=== PATIENT | female | born 1950 | race Caucasian/White ===

== ENCOUNTER 2025-02-07 05:36 | Observation (INO) | payer MEDICARE ==
[2025-02-06 09:41] LABS: BASOPHILS # (AUTO) 0.1 (0.0-0.1); BASOPHILS % 0.9 % (0.0-1.0); EOSINOPHILS # (AUTO) 0.1 (0.0-0.4); EOSINOPHILS % 1.7 % (0.0-6.0); HEMATOCRIT 35.7 % (34.2-44.1); HEMOGLOBIN 11.3 g/dL (12.0-16.0); LYMPHOCYTES # (AUTO) 1.5 (1.0-3.2); LYMPHOCYTES % 25.1 % (18.0-39.1); MEAN CORPUSCULAR HEMOGLOBIN 26.6 pg (28-32); MEAN CORPUSCULAR HGB CONC 31.7 g/dL (31-35); MONOCYTES # (AUTO) 0.6 (0.2-0.8); MONOCYTES % 9.5 % (4.4-11.3); NEUTROPHILS # (AUTO) 3.6 (2.1-6.9); NEUTROPHILS % 62.6 % (38.7-80.0); PLATELET COUNT 199 x10e3/uL (140-360); RED BLOOD COUNT 4.25 x10e6/uL (3.6-5.1); RED CELL DISTRIBUTION WIDTH 15.8 % (11.7-14.4); WHITE BLOOD COUNT 5.78 x10e3/uL (4.8-10.8)
[2025-02-06 10:16] LABS: ANION GAP 14.1 mmol/L (8-16); CALCIUM 9.4 mg/dL (8.4-10.2); CREATININE, SERUM 1.35 mg/dL (0.57-1.11); POTASSIUM 4.1 mmol/L (3.5-5.1)
[~2025-02-07] VITALS: Ht 157.5 cm; Wt 91.2 kg
[~2025-02-07 05:36] MED LIST: ASPIRIN EC81 MG PO; ATORVASTATIN CA10 MG PO; GABAPENTIN300 MG PO; HYDRALAZINE HC100 MG PO; HYDROCHLOROTHIA25 MG PO; LEVOTHYROXINE75 MCG PO; MELOXICAM7.5 MG PO; MIRTAZAPINE15 MG PO; MONTELUKAST SOD10 MG PO; OMEPRAZOLE40 MG PO; POTASSIUM CHLO20 ME1 PO; SERTRALINE HCL100 MG PO; TIZANIDINE HCL4 MG PO; VERAPAMIL ER120 MG PO; ZEBETA10 MG PO
[2025-02-07] MEDS: CELECOXIB 200 MG CAP ONE ×2 (06:49→16:53)
[2025-02-07] MEDS: GABAPENTIN 300 MG CAP ONE (06:49)
[2025-02-07] MEDS: CEFAZOLIN SODIUM 2 GM ONE (06:50)
[2025-02-07] MEDS: LACTATED RINGER'S 1,000 ML ONE (06:51)
[2025-02-07] MEDS: DEXAMETHASONE SOD PHOS 10 MG/1 ML VIAL ONE (06:51)
[2025-02-07] MEDS: DEXAMETHASONE 10MG/ML PF INJ ONE (06:52)
[2025-02-07] MEDS ORDERED: ONDANSETRON HCL INJ 2MG/ML 2ML 2 MG/ML VIAL ONE (07:09)
[2025-02-07] MEDS ORDERED: FENTANYL CITRATE/PF 100MCG/2 ML INJ ONE ×2 (07:09→08:31)
[2025-02-07] MEDS ORDERED: LIDOCAINE HCL 2% LOCAL INJ 5 ML SDV VIAL INJ ONE (07:09)
[2025-02-07] MEDS ORDERED: DEXAMETHASONE SOD PHOS INJ 4 MG/ML SDV ONE (07:09)
[2025-02-07] MEDS ORDERED: PROPOFOL IV EMULSION 10 MG/ML 20 ML VIAL ONE ×2 (07:10→08:19)
[2025-02-07] MEDS ORDERED: SEVOFLURANE INHAL SOLN 250 ML PEN BTL ONE (07:10)
[2025-02-07] MEDS ORDERED: ACETAMINOPHEN 1000 MG/100 ML 100 ML IV ONE (07:10)
[2025-02-07] MEDS: SODIUM CHLORIDE 0.9% 1000ML 1,000 ML IV SCH (09:15)
[2025-02-07] MEDS ORDERED: ONDANSETRON HCL INJ 2MG/ML 2ML 2 MG/ML VIAL IV PRN (09:15)
[2025-02-07] MEDS ORDERED: DIPHENHYDRAMINE HCL INJ 50 MG/ML VIAL IV PRN (09:15)
[2025-02-07] MEDS ORDERED: HYDROCODONE/APAP 5MG-325MG TAB PO PRN (09:15)
[2025-02-07] MEDS ORDERED: DOCUSATE SODIUM 100 MG CAP PO PRN (09:15)
[2025-02-07] MEDS: ONDANSETRON HCL INJ 2MG/ML 2ML 2 MG/ML VIAL IV ONE (09:53)
[2025-02-07] MEDS ORDERED: EPHEDRINE SULFATE INJ 50 MG/ML VIAL ONE (11:07)
[2025-02-07] MEDS ORDERED: TRANEXAMIC ACID 1,000 MG/10 ML ML ONE (12:46)
[2025-02-07] MEDS ORDERED: ASPIRIN81 MG PO (12:52)
[2025-02-07] MEDS: CELECOXIB 100 MG CAP PO SCH (16:26)
[2025-02-07] MEDS: ASPIRIN 325 MG TAB PO SCH (16:26)
[2025-02-07] MEDS: ASPIRIN 325 MG TAB ONE (16:54)
[2025-02-07] MEDS: ROPIVACAINE/EPI/CLONIDINE/KET 50 ML SYRINGE INJ ONE (16:55)
[2025-02-07] MEDS: SODIUM CHLORIDE 0.9% 100 ML ONE (16:55)
[2025-02-07 17:55] VITALS: BP 147/68; PULSE 57; RESP 14; TEMP 97; O2SAT 97
[2025-02-07 19:05] VITALS: PULSE 75; RESP 18; O2SAT 93
[2025-02-07 20:00] VITALS: BP 147/53; PULSE 77; RESP 20; TEMP 97.5; O2SAT 95
[2025-02-08] VITALS: BP 151/66; PULSE 72; RESP 20; TEMP 98.2; O2SAT 93
[2025-02-08 05:52] VITALS: BP 161/69; PULSE 70; RESP 18; TEMP 97.7; O2SAT 96
[2025-02-08 06:06] LABS: HEMATOCRIT 32.5 % (34.2-44.1); HEMOGLOBIN 10.2 g/dL (12.0-16.0)
[2025-02-08] MEDS: LEVOTHYROXINE SODIUM 75 MCG TAB PO SCH (07:40)
[2025-02-08] MEDS: MONTELUKAST SODIUM 10 MG TAB PO SCH (07:40)
[2025-02-08] MEDS: SERTRALINE HCL 100 MG TAB PO SCH (07:40)
[2025-02-08] MEDS: HYDROCHLOROTHIAZIDE 25 MG TAB PO SCH (07:40)
[2025-02-08] MEDS: PANTOPRAZOLE SOD 40 MG TABEC PO SCH (07:40)
[2025-02-08 07:45] VITALS: PULSE 71; RESP 18; O2SAT 96
[2025-02-08] MEDS: HYDRALAZINE HCL 100 MG TABLET PO SCH (07:48)
[2025-02-08 08:25] VITALS: BP 171/66; PULSE 70; RESP 18; TEMP 97.9; O2SAT 96
[2025-02-08] MEDS ORDERED: ACETAMINOPHEN 1000 MG/100 ML IV PRN (09:15)
[2025-02-08 10:00] VITALS: BP 171/66; PULSE 70; RESP 18; TEMP 97.9; O2SAT 96
[2025-02-08] MEDS: GABAPENTIN 300 MG CAP PO SCH (10:16)
[2025-02-08] MEDS: HYDROCODONE/APAP 7.5MG-325MG 1 EA TAB PO PRN (10:16)
[2025-02-08] MEDS: VERAPAMIL HCL 180 MG TBER PO SCH (10:52)
[2025-02-08 12:11] VITALS: BP 150/62; PULSE 74; RESP 18; TEMP 98.2; O2SAT 95
[2025-02-08] MEDS ORDERED: ONDANSETRON HCL 4 MG ORAL DISINTEGRATING TAB PO PRN (13:15)
[2025-02-08] MEDS ORDERED: ATORVASTATIN 10 MG TAB PO SCH (21:00)
== END 2025-02-08 13:44 | disposition home or self-care (01) ==
LOC: OR 05:36 → PACU V 09:03 → MED/SURG2 17:03
PROVIDERS: ADMIT Specialist; ATTEND Specialist
DX: M17.12 Unilateral primary osteoarthritis, left knee (principal); I12.9 Hypertensive chronic kidney disease with stage 1 through stage 4 chronic kidney disease, or unspecified chronic kidney disease; N18.32 Chronic kidney disease, stage 3b; D64.9 Anemia, unspecified; E03.9 Hypothyroidism, unspecified; E78.5 Hyperlipidemia, unspecified; F41.9 Anxiety disorder, unspecified; E66.01 Morbid (severe) obesity due to excess calories; Z68.36 Body mass index [BMI] 36.0-36.9, adult; Z01.810 Encounter for preprocedural cardiovascular examination; Z01.812 Encounter for preprocedural laboratory examination; Z01.818 Encounter for other preprocedural examination
CPT/HCPCS: 27447; 36415 ×2; 71046; 73560; 80048; 85014; 85018; 85025; 86850; 86900; 93005; 94799 ×2; 97116; 97162; 97530 ×3; C1713 ×2; C1776 ×3; G0378 ×2; J0131; J0690 ×2; J1100 ×2; J2003; J2405; J2470; J2704; J3010; J7050; J7121; J1200